=== PATIENT | male | born 1980 | race African-American/Black ===

== ENCOUNTER 2022-11-23 13:08 | Emergency (ER) | payer OTHER ==
[~2022-11-23] VITALS: Ht 172.7 cm; Wt 98.0 kg
[2022-11-23] MEDS ORDERED: ACETAMINOPHEN 325MG TABLET PO ONE (13:45)
[2022-11-23] MEDS: ACETAMINOPHEN 325MG TABLET PO NR ×3 (18:48→20:46)
[2022-11-23] MEDS ORDERED: KETOROLAC 30MG/ML VIAL IM ONE (19:15)
[2022-11-23] MEDS ORDERED: MAGNESIUM/ALUMINUM HYDROXIDE/SIMETHICONE 30ML UDC PO ONE (19:15)
[2022-11-23] MEDS ORDERED: FAMOTIDINE 20MG TABLET PO ONE (19:15)
[2022-11-23 19:41] VITALS: BP 106/59
[2022-11-23] MEDS ORDERED: GUAI-453 PO (21:01)
== END 2022-11-23 21:10 | disposition home or self-care (01) ==
LOC: ER 13:08
DX: B34.9 Viral infection, unspecified (principal); F17.200 Nicotine dependence, unspecified, uncomplicated
CPT/HCPCS: 71045; 96372; 99283; J1885; Z7610